=== PATIENT | female | born 1970 | race Caucasian/White ===

== ENCOUNTER 2017-11-18 04:25 | Observation (INO) | payer BC ==
[~2017-11-18] VITALS: Ht 154.9 cm; Wt 102.1 kg
--- NOTE | ~2017-11-18 | 2DMMODE ---
[facility] [address] [place] [address] 2 D/M-MODE ECHOCARDIOGRAM Name: TARYN FLANNERY Room #: 427-P ADM IN M.R.#: [id number] Admission: 11/18/17 Attend Phys: Eddi Carmona Discharge: Date of : 66 Date of Service: 11/18/17 1258 Report #: [id number] THIS REPORT FOR: //name// APPROVED REPORT Study performed: 11/18/2017 12:13:21 EXAM: Comprehensive 2D, Doppler, and color-flow Echocardiogram Patient Location: Echo lab Room #: [facility] Status: routine BSA: 1.99 HR: 72 bpm BP: 140/87 mmHg Rhythm: NSR Other Information Study Quality: Adequate Indications Afib with RVR. Hx: Afib, HTN 2D Dimensions RVDd: 34.71 mm LVEF(%): 66.49 (>50%) IVSd: 11.69 (7-11mm) LVOT Diam: 18.77 (18-24mm) LVDd: 40.85 mm PWd: 11.48 (7-11mm) Ascending Ao: 28.43 (22-36mm) LVDs: 26.02 (25-40mm) Aortic Root: 29.43 mm Hill's LVEF: 66.49 % Volumes Left Atrial Volume (Systole) Single Plane 4CH: 28.95 mL Single Plane 2CH: 42.63 mL LA ESV Index: 19.00 mL/m2 Aortic Valve AoV Peak Corey.: 1.76 m/s AO Peak Gr.: 12.37 mmHg LVOT Max P.62 mmHg LVOT Max V: 1.38 m/s JOSE ALFREDO Vmax: 2.17 cm2 Mitral Valve E/A Ratio: 1.3 MV Decel. Time: 179.11 ms [facility] [employer] [place] [address] 2 D/M-MODE ECHOCARDIOGRAM Name: TARYN FLANNERY Room #: 427-P [facility] IN .R.#: [id number] Admission: 11/18/17 Attend Phys: Eddi Carmona Discharge: Date of : 66 Date of Service: 11/18/17 1258 Report #: [id number] MV E Max Corey.: 0.90 m/s MV A Corey.: 0.72 m/s MV PHT: 51.94 ms IVRT: 92.27 ms Pulmonary Valve PV Peak Corey.: 0.96 m/s PV Peak Gr.: 3.72 mmHg Pulmonary Vein P Vein S: 0.62 m/s P Vein A: 0.44 m/s P Vein D: 0.43 m/s P Vein A Dur.: 110.7 msec P Vein S/D Ratio: 1.44 Tricuspid Valve RAP Estimate: 5.00 mmHg Left Ventricle The left ventricle is normal size. There is normal LV segmental wall motion. Mild concentric left ventricular hypertrophy. Left ventricular systolic function is normal. LVEF is 65%. The left ventricular diastolic function is normal. Right Ventricle The right ventricle is normal size. The right ventricular systolic function is normal. Atria The left atrium size is normal. The right atrium size is normal. Aortic Valve The aortic valve is normal in structure. No aortic regurgitation is present. There is no aortic valvular stenosis. Mitral Valve The mitral valve is normal in structure. Trace mitral regurgitation. Tricuspid Valve The tricuspid valve is normal in structure. Trace tricuspid regurgitation. Unable to assess PA pressure. Pulmonic Valve The pulmonary valve is normal in structure. There is no pulmonic valvular regurgitation. [facility] [address] [place] [address] 2 D/M-MODE ECHOCARDIOGRAM Name: TARYN FLANNERY Room #: 427-P [facility] IN ..#: [id number] Admission: 11/18/17 Attend Phys: Eddi Carmona Discharge: Date of : 66 Date of Service: 11/18/17 1258 Report #: [id number] Great Vessels The aortic root is normal in size. The ascending aorta is normal in size. IVC is normal in size and collapses >50% with inspiration. Pericardium There is no pericardial effusion. <Conclusion> The left ventricle is normal size. LVEF is 65%. The aortic valve is normal in structure. The mitral valve is normal in structure. Trace mitral regurgitation. The tricuspid valve is normal in structure. Trace tricuspid regurgitation. Unable to assess PA pressure. The pulmonary valve is normal in structure. There is no pulmonic valvular regurgitation. There is no pericardial effusion. <ELECTRONICALLY SIGNED> By: Mikey Bowie MD 11/18/17 1258 1258 1258 Mikey Bowie MD /INF
--- NOTE | ~2017-11-18 | EKG ---
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1970 Requested By: Barron Loera Order Number: [id number] MD: Tiburcio Balderas Measurements Intervals Edson Rate: 93 P: 56 CT: 142 QRS: 52 QRSD: 84 T: 15 QT: 341 QTc: 425 Interpretive Statements Sinus rhythm Borderline T wave abnormalities Compared to ECG 04/04/2016 08:38:51 T-wave abnormality now present Electronically Signed On 11-18-2017 7:53:48 SEARCH STRATEGIST by Tiburcio Balderas [email or web address] <ELECTRONICALLY SIGNED> By: Tiburcio Balderas MD, [facility] 11/18/17 0753 043 1 Tiburcio Balderas MD, FACC /EPI
[~2017-11-18 04:25] MED LIST: CLEOCIN HCL150 M1 PO; IBUPROFEN 600600 M1 PO; NOHOMEMEDICATIONS; NYSTATIN15 GM TP; OMEPRAZOLE20 M2 PO; PROTONIX 20 MG20 M1 PO; VERAPAMIL ER180 MG PO
[2017-11-18 04:40] VITALS: BP 155/93
[2017-11-18 05:05] LABS: ABSOLUTE NEUTROPHILS 4.2 thou/uL (1.4-8.2); BASOPHILS 0.5 % (0.0-2.0); EOSINOPHILS 2.5 % (0.0-3.0); HEMATOCRIT 36.1 % (37.0-47.0); LYMPHOCYTES 31.2 % (24.0-44.0); MCH 27.3 pg (26.0-34.0); MCHC 33.2 g/dL (28.0-37.0); MONOCYTES 5.5 % (1.0-8.0); PLATELET COUNT 204 thou/uL (150-400); POLYS 60.3 % (36.0-66.0); RDW 13.7 % (10.5-14.5)
[2017-11-18 05:14] LABS: ANION GAP 8 mmol/L (7-16); BUN 13 mg/dL (7-18); CALCIUM 8.9 mg/dL (8.5-10.1); CHLORIDE 104 mmol/L (98-107); CO2 28 mmol/L (21-32); GLUCOSE 132 mg/dL (74-106); POTASSIUM 3.7 mmol/L (3.5-5.1); SODIUM 140 mmol/L (136-145)
[2017-11-18] MEDS ORDERED: COZAAR 50 MG TA50 M2 PO (05:14)
[2017-11-18] MEDS ORDERED: SYNTHROID75 MCG PO (05:15)
[2017-11-18 05:24] LABS: ALBUMIN 3.5 g/dL (3.4-5.0); MAGNESIUM 1.9 mg/dL (1.8-2.4); SGOT 19 U/L (15-37); SGPT 29 U/L (30-65); TOTAL BILIRUBIN 0.1 mg/dL (<0.1-1.0); TOTAL PROTEIN 6.7 g/dL (6.4-8.2); TROPONIN-I < 0.04 ng/mL (<0.06)
[2017-11-18 08:48] LABS: CHOLESTEROL 214 mg/dL (<200); HDL CHOLESTEROL 38 mg/dL (>40); LDL CHOLESTEROL 147 mg/dL (<100); TC:HDL 5.6 Ratio (Not establshd); TRIGLYCERIDE 148 mg/dL (<150); VLDL 30 mg/dL (<40)
[2017-11-18 08:49] LABS: SERUM ASSESSMENT Clear
[2017-11-18 11:52] VITALS: BP 140/87
[2017-11-18 12:09] VITALS: BP 139/84
[2017-11-18 12:43] VITALS: BP 146/97
[2017-11-18 14:55] VITALS: BP 147/84
[2017-11-18 19:51] VITALS: BP 144/91
[2017-11-18 23:37] LABS: AMP/METHAMP Negative (Negative); BARBITURATES Negative (Negative); BENZODIAZEPINES Negative (Negative); COCAINE Negative (Negative); METHADONE Negative (Negative); OPIATES Negative (Negative); PCP Negative (Negative)
[2017-11-19 03:15] VITALS: BP 146/89
[2017-11-19 07:40] VITALS: BP 142/83
[2017-11-19] MEDS ORDERED: NORVASC10 MG PO (10:19)
[2017-11-19 11:24] VITALS: BP 142/83
== END 2017-11-19 13:01 | disposition home or self-care (01) ==
LOC: ER 04:25 → EROBS 05:40 → 4E 12:12
PROVIDERS: Emergency Medicine; Hospitalist
DX: R00.2 Palpitations (principal); I10 Essential (primary) hypertension; K21.9 Gastro-esophageal reflux disease without esophagitis; F41.9 Anxiety disorder, unspecified; E03.9 Hypothyroidism, unspecified

== ENCOUNTER → 2020-11-11 | Outpatient (CLI) | payer BC ==
[~2020-11-11] MED LIST changes: +COZAAR 50 MG TA50 M2 PO; +NORVASC10 MG PO; +SYNTHROID75 MCG PO
== END ==
LOC: SJCVCIMAG 10:16
PROVIDERS: ATTEND Internal Medicine
DX: I49.3 Ventricular premature depolarization (principal); R00.0 Tachycardia, unspecified; R94.31 Abnormal electrocardiogram [ECG] [EKG]; R53.83 Other fatigue; I10 Essential (primary) hypertension; Z79.899 Other long term (current) drug therapy

== ENCOUNTER 2021-05-27 16:19 | Emergency (ER) | payer BC ==
[~2021-05-27] VITALS: Ht 154.9 cm; Wt 93.4 kg
[2021-05-27] MEDS ORDERED: BENICAR20 MG PO (16:42)
[2021-05-27 17:23] LABS: ABSOLUTE NEUTROPHILS 5.9 thou/uL (1.4-8.2); BASOPHILS 0.4 % (0.0-2.0); EOSINOPHILS 2.3 % (0.0-3.0); HEMATOCRIT 37.9 % (37.0-47.0); HEMOGLOBIN 12.7 gm/dL (12.0-15.0); LYMPHOCYTES 20.9 % (24.0-44.0); MCH 27.4 pg (26.0-34.0); MCHC 33.4 g/dL (28.0-37.0); MCV 82.1 fL (80.0-100.0); MONOCYTES 5.5 % (1.0-8.0); PLATELET COUNT 172 thou/uL (150-400); POLYS 70.9 % (36.0-66.0); RBC 4.62 mil/uL (4.20-5.00); RDW 14.8 % (10.5-14.5); WBC 8.3 thou/uL (4.0-11.0)
[2021-05-27 17:26] LABS: ANION GAP 9 mmol/L (7-16); BUN 15 mg/dL (7-18); CALCIUM 8.9 mg/dL (8.5-10.1); CHLORIDE 105 mmol/L (98-107); CO2 27 mmol/L (21-32); GLUCOSE 91 mg/dL (74-106); POTASSIUM 4.1 mmol/L (3.5-5.1); SODIUM 141 mmol/L (136-145)
[2021-05-27 17:36] LABS: ALBUMIN 3.8 g/dL (3.4-5.0); SGOT 11 U/L (15-37); SGPT 18 U/L (30-65); TOTAL BILIRUBIN 0.3 mg/dL (0.2-1.0); TOTAL PROTEIN 7.2 g/dL (6.4-8.2); TROPONIN-I <0.06 ng/mL (<0.06)
[2021-05-27 18:23] VITALS: BP 170/85
--- NOTE | 2021-05-29 07:30 | EKG ---
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: PATIENCE : 1970 Requested By: Lakhwinder Massey Order Number: [id number] MD: Lam Medrano Measurements Intervals [place] Rate: 75 P: 43 [place]: 131 QRS: 26 QRSD: 80 T: 105 QT: 362 QTc: 405 Interpretive Statements Sinus rhythm Nonspecific T abnormalities, lateral leads Compared to ECG 11/18/2017 04:32:29 No significant changes Electronically Signed On 05-29-2021 7:29:47 CDT by Lam Medrano [email or web address] <ELECTRONICALLY SIGNED> By: Lam Medrano MD, [facility] 05/29/21 0729 1625 1625 Lam Medrano MD, FACC /EPI
== END 2021-05-27 18:32 | disposition home or self-care (01) ==
LOC: ER 16:19
PROVIDERS: Emergency Medicine
DX: R00.2 Palpitations (principal); R55 Syncope and collapse; Z79.899 Other long term (current) drug therapy; Z20.822 Contact with and (suspected) exposure to COVID-19; Z88.6 Allergy status to analgesic agent; Z88.1 Allergy status to other antibiotic agents; Z91.018 Allergy to other foods

== ENCOUNTER 2021-06-06 18:51 | Emergency (ER) | payer BC ==
[~2021-06-06] VITALS: Ht 154.9 cm; Wt 93.4 kg
[~2021-06-06 18:51] MED LIST changes: +BENICAR20 MG PO
[2021-06-06 19:18] LABS: ABSOLUTE NEUTROPHILS 5.6 thou/uL (1.4-8.2); BASOPHILS 0.7 % (0.0-2.0); HEMATOCRIT 38.8 % (37.0-47.0); LYMPHOCYTES 21.8 % (24.0-44.0); MCH 27.5 pg (26.0-34.0); MCHC 33.4 g/dL (28.0-37.0); MCV 82.3 fL (80.0-100.0); MONOCYTES 5.9 % (1.0-8.0); PLATELET COUNT 189 thou/uL (150-400); POLYS 69.6 % (36.0-66.0); RBC 4.71 mil/uL (4.20-5.00); WBC 8.1 thou/uL (4.0-11.0)
[2021-06-06 19:21] LABS: ANION GAP 9 mmol/L (7-16); BUN 14 mg/dL (7-18); CALCIUM 9.1 mg/dL (8.5-10.1); CHLORIDE 106 mmol/L (98-107); CO2 28 mmol/L (21-32); CREATININE 1.1 mg/dL (0.6-1.0); GLUCOSE 125 mg/dL (74-106); POTASSIUM 3.7 mmol/L (3.5-5.1); SODIUM 143 mmol/L (136-145)
[2021-06-06 19:30] LABS: TROPONIN-I <0.06 ng/mL (<0.06)
[2021-06-06] MEDS ORDERED: CARAFATE 1 GM TA1 G1 PO (19:59)
[2021-06-06 20:32] VITALS: BP 158/86
--- NOTE | 2021-06-07 07:11 | EKG ---
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 : 1970 Requested By: Fox Dupree Order Number: [id number] MD: Lam Medrano Measurements Intervals [place] Rate: 81 P: 43 [place]: 142 QRS: 33 QRSD: 82 T: 32 QT: 347 QTc: 403 Interpretive Statements Sinus rhythm Borderline T wave abnormalities Compared to ECG 05/27/2021 16:25:29 No significant changes Electronically Signed On 06-07-2021 7:11:18 CDT by Lam Medrano [email or web address] <ELECTRONICALLY SIGNED> By: Lam Medrano MD, [facility] 06/07/21 0711 [id number] 1848 Lam Medrano MD, FACC /EPI
== END 2021-06-06 20:33 | disposition home or self-care (01) ==
LOC: ER 18:51
PROVIDERS: Nurse Practitioner
DX: R07.89 Other chest pain (principal); I48.91 Unspecified atrial fibrillation; Z98.890 Other specified postprocedural states; Z79.899 Other long term (current) drug therapy; Z88.8 Allergy status to other drugs, medicaments and biological substances; Z88.1 Allergy status to other antibiotic agents; Z91.018 Allergy to other foods; Z91.013 Allergy to seafood